=== PATIENT | female | born 1930 | race Caucasian/White ===

== ENCOUNTER 2018-06-30 13:04 | Emergency (ER) | payer MEDICARE ==
--- OUTSIDE RECORDS SUMMARY | 2018-06-30 13:39 | XMS REPORT | Continuity of Care Document ---
:1930 External Reference #:[id number] Author Name Beatriz Ward Care Team Providers Name Role Phone Yordan Johnson MD Primary Care Physician Unavailable Payers Type Date Identification Numbers Payment Provider Subscriber Policy Number: [id number] Medicare Meagan Chakraborty PayID: [id number] [address] [place] [address] Policy Number: [id number] [employer] Meagan Chakraborty PayID: [id number] [address] [place] [address] Expires: 2018 Policy Number: [id number] [employer] Meagan Chakraborty Group Number: [id number] [address] PayID: [id number] [place] [address] Policy Number: [id number] [facility] Meagan Chakraborty PayID: [id number] [address] [place] [address] PayID: [id number] [facility] Meagan Chakraborty [address] [place] [address] Advance Directives Description No Information Available Problems Description No Information Family History Date Family Member(s) Problem(s) Comments General Heart Disease General Cancer Mother due to CAD () Mother Stroke Social History Type Date Description Comments Sex Unknown Lives With Spouse Tobacco Use Start: Unknown End: Patient is a former quit 69 years ago Unknown smoker Smoking Status Reviewed: 06/29/18 Patient is a former quit 69 years ago smoker Exercise Exercises regularly Type/Frequency Allergies, Adverse Reactions, Alerts Date Description Reaction Status Severity Comments 08/12/2015 Tetracycline Active 10/04/2017 Bactrim Active rash Medications Medication Date Status Form Strength Qnty SIG Indications Ordering Provider No Active 06/29/ Active Unknown Medications 2018 Levaquin 10/04/ Hx Tablets 250mg 3tabs 1 tab po qd N39.0 Mary Ann 2018 - x 3 days Jesi, 05/23/ N.P. 2018 Anucort-HC 10/04/ Hx Suppository 25mg 12uni 1 K64.9 Mary Ann 2017 - ts suppository Jesi, 06/28/ every night N.P. 2019 as needed Rectiv 10/04/ Hx Ointment 0.4% 30gm apply K64.9 Mary Ann 2018 - sparingly Jesi, 05/23/ bid x 2 N.P. 2018 weeks Miralax 10/04/ Hx Packet 3350NF 24uni 1 capful qd K64.9 Mary Ann 2018 - ts Jesi, 06/28/ N.P. 2019 Biofreeze 04/22/ Hx Gel 4% 237ml 1 M54.31 Bridgett2016 - application [employer], 05/23/ topically [employer] 2017 four times a day as needed for muscle pain (may autosub 5% if 4% not available) Bactrim DS 01/29/ Hx Tablets 800-160mg 6tabs twice daily N39.0 Bridgett 2015 - for 3 days [place], 10/04/ [employer] 2017 Bactrim DS 01/19/ Hx Tablets 800-160mg 6tabs twice daily N39.0 Mary Ann 2015 - for 3 days [facility], 01/21/ N.P. 2016 Aspirin / Hx Tablets 325mg prn for pain Unknown - 2018 Probiotic / Hx Capsules 1 cap po qd Unknown - 2018 Immunizations Description No Information Available Vital Signs Date Vital Result Comment 06/29/2018 10:57am Height 62 inches 5'2" Weight 129.00 lb Heart Rate 65 /min BP Systolic Sitting 230 mmHg BP Diastolic Sitting 88 mmHg Pain Level 0 BMI (Body Mass Index) 23.6 kg/m2 05/25/2018 10:11am Weight 128.00 lb Heart Rate 58 /min BP Systolic Sitting 108 mmHg BP Diastolic Sitting 48 mmHg Respiratory Rate 20 /min Body Temperature 99.8 F O2 % BldC Oximetry 95 % 05/23/2018 11:45am Weight 127.12 lb Heart Rate 60 /min BP Systolic Sitting 148 mmHg BP Diastolic Sitting 76 mmHg Respiratory Rate 22 /min Body Temperature 99.9 F O2 % BldC Oximetry 99 % 10/04/2017 11:07am Weight 132.38 lb Heart Rate 81 /min BP Systolic Sitting 156 mmHg BP Diastolic Sitting 80 mmHg Respiratory Rate 16 /min Body Temperature 98.8 F O2 % BldC Oximetry 97 % 08/03/2017 11:43am Weight 132.00 lb Heart Rate 52 /min BP Systolic Sitting 170 mmHg BP Diastolic Sitting 64 mmHg Respiratory Rate 20 /min Body Temperature 99.4 F O2 % BldC Oximetry 95 % 04/22/2017 12:14pm Heart Rate 57 /min BP Systolic Sitting 156 mmHg BP Diastolic Sitting 64 mmHg Respiratory Rate 20 /min Body Temperature 99.2 F O2 % BldC Oximetry 98 % 02/15/2017 10:32am Heart Rate 62 /min BP Systolic 110 mmHg BP Diastolic 60 mmHg Respiratory Rate 20 /min Body Temperature 98.9 F O2 % BldC Oximetry 97 % 01/28/2016 11:37am Weight 123.50 lb Heart Rate 64 /min BP Systolic Sitting 120 mmHg BP Diastolic Sitting 70 mmHg Respiratory Rate 20 /min 01/20/2016 10:27am Weight 125.00 lb Heart Rate 63 /min BP Systolic Sitting 140 mmHg BP Diastolic Sitting 70 mmHg Respiratory Rate 18 /min Body Temperature 98.5 F O2 % BldC Oximetry 97 % 08/15/2015 1:17pm Heart Rate 53 /min BP Systolic Sitting 190 mmHg 10 min later 160/60 BP Diastolic Sitting 50 mmHg 10 min later 160/60 Respiratory Rate 16 /min Body Temperature 98.7 F O2 % BldC Oximetry 98 % 08/12/2015 10:55am Height 62 inches 5'2" Weight 125.38 lb Heart Rate 50 /min BP Systolic Sitting 210 mmHg 5 min later 160/60 BP Diastolic Sitting 64 mmHg 5 min later 160/60 Respiratory Rate 16 /min BMI (Body Mass Index) 22.9 kg/m2 Results Test Date Facility Test Result H/L Range Note Laboratory test 05/23/2018 [facility] Culture Throat SEE RESULT 1, [address] [place] [address] [phone] Urinalysis 10/03/2017 [facility] Urine Color Yellow Profile [address] [place] [address] [phone] Urine Appearance Cloudy Urine Specific [place] 1.006 Low 1.010-1.030 Urine pH 6.0 N 5-9 Urine Urobilinogen Negative Negative Urine Ketones Negative Negative Urine Protein Negative Negative Urine Leukocytes 3+ Abnormal Negative Urine Blood 1+ Abnormal Negative Urine Nitrite Negative Negative Urine Bilirubin Negative Negative Urine Glucose Negative Negative Urine White Blood Cell 3+(>20/hpf) Abnormal Absent Urine Red Blood Cell 1+(3-5/hpf) Abnormal Absent Urine Bacteria 1+ Abnormal Absent Urine Renal Epithelial Cells Present Abnormal Absent Urine Culture And 10/03/2017 [facility] Urine Culture SEE RESULT [address] [place] [address] [phone] Urinalysis Profile 01/28/2016 [facility] Urine Color Yellow N [address] [place] [address] [phone] Urine Appearance Clear N Urine Specific [place] 1.005 Low 1.010-1.030 Urine pH 6.0 N 5-9 Urine Urobilinogen Negative N Negative Urine Ketones Negative N Negative Urine Protein Negative N Negative Urine Leukocytes Negative N Negative Urine Blood Negative N Negative Urine Nitrite Negative N Negative Urine Bilirubin Negative N Negative Urine Glucose Negative N Negative Urine Culture And 01/28/2016 [facility] Urine Culture SEE RESULT [address] [place] [address] [phone] Urinalysis Profile 01/20/2016 [facility] Urine Color Yellow N [address] [place] [address] [phone] Urine Appearance Cloudy N Urine Specific [place] 1.009 Low 1.010-1.030 Urine pH 6.0 N 5-9 Urine Urobilinogen Negative N Negative Urine Ketones Negative N Negative Urine Protein Negative N Negative Urine Leukocytes 3+ Abnormal Negative Urine Blood 1+ Abnormal Negative Urine Nitrite Negative N Negative Urine Bilirubin Negative N Negative Urine Glucose Negative N Negative Urine White Blood Cell 3+(>20/hpf) Abnormal Absent Urine Red Blood Cell Trace(0-2/hpf) N Absent Urine Bacteria Absent N Absent Urine Squamous Epithelial Cell Present Abnormal Absent Urine Culture And 01/20/2016 [facility] Urine Culture SEE RESULT [address] [place] [address] [phone] 1 [id number] 2 SEE RESULT BELOW Name: MEAGAN CHAKRABORTY I : [address]: Mary Ann Dennison NP Acct: [id number] Unit: [id number] AGE: 87 Location: [facility] Re05/23/18 SEX: F Status: REG REF SPEC: [id number] KAYLA: 05/23/18-[address]: Mary Ann Dennison NP REQ: [id number] RECD: 05/23/18 STATUS: COMP _ SOURCE: THROAT SPDESC: ORDERED: Throat Culture COMMENTS: [id number] Procedure Result Reported Site Throat Culture Final 05/25/18- 0901 ML Organism 1 NORMAL FELICITY Quantity 3+ Throat cultures are clinically indicated to detect the presence of group A strep, arcanobacterium and yeast. In certain cases, predominating organisms will be reported. * ML - Main Lab . END OF REPORT DEPARTMENT OF PATHOLOGY, [address] [place] [address] Julius Emmanuel M.D. Director [facility] # [id number] 3 SEE RESULT BELOW Name: MEAGAN CHAKRABORTY Lula : [address]: Mary Ann Dennison NP Acct: [id number] Unit: [id number] AGE: 86 Location: [facility] Re10/03/17 SEX: F Status: REG REF SPEC: [id number] KAYLA: 10/03/17-[address]: Mary Ann Dennison NP REQ: [id number] RECD: 10/03/17-9672 EXPLICIT FAX#: FAX RESULTS [id number] STATUS: RES OTHR DR: Scarlet Johnson MD _ SOURCE: URINE SPDESC: ORDERED: Urine Culture QUERIES: Urine Source: Random Procedure Result Reported Site Urine Culture Preliminary 10/04/17- 1008 ML Organism 1 KLEBSIELLA OXYTOCA [place] Count >100,000 (Many) CFU/ML * ML - Main Lab . END OF REPORT DEPARTMENT OF PATHOLOGY, [address] [place] [address] Julius Emmanuel M.D. Director [facility] # [id number] 4 [id number] 5 SEE RESULT BELOW Name: MEAGAN CHAKRABORTY I : [address]: Mary Ann Dennison NP Acct: [id number] Unit: [id number] AGE: 85 Location: [facility] Re01/28/16 SEX: F Status: REG REF SPEC: [id number] KAYLA: 01/28/16-[address]: Mary Ann Dennsion NP REQ: [id number] RECD: 01/28/16 STATUS: EWA CARUSO DR: Scarlet _ SOURCE: URINE SPDESC: ORDERED: Urine Culture COMMENTS: [id number] Procedure Result Reported Site Urine Culture Final 01/29/16- 1704 ML No Growth (<1,000 CFU/mL) * ML - MAIN LAB ([facility]) . END OF REPORT * ML=Testing performed at Main Lab DEPARTMENT OF PATHOLOGY, [address] [place] [address] Julius Emmanuel M.D. Director [facility] # [id number] 6 [facility] [id number] 7 SEE RESULT BELOW Name: [place] I : [address]: Mary Ann Dennison NP Acct: [id number] Unit: [id number] AGE: 85 Location: [facility] Re01/20/16 SEX: F Status: REG REF SPEC: [id number] KAYLA: 01/20/16-[address] [facility] [address]: Mary Ann Dennison [employer] REQ: [id number] RECD: 01/20/16-1220 STATUS: EWA CARUSO DR: Scarlet _ SOURCE: URINE SPDESC: ORDERED: Urine Culture COMMENTS: [facility] [id number] Procedure Result Reported Site Urine Culture Final 01/21/16- 1417 ML Organism 1 STREP GROUP B [place] Count >100,000 (Many) CFU/ML Susceptibility testing of penicillins and other B-lactams approved by FDA for treatment of Streptococcus pyogenes (Group A Strep) and Streptococcus agalactiae (Group B Strep) is not necessary for clinical purposes and need not be done routinely, since as with vancomycin, resistant strains have not been recognized. (CLSI H865-R12;p.66) Positive isolates will be saved for one week. Please call the Microbiology Laboratory if further susceptibility testing is needed. * ML - MAIN LAB ([facility]) . END OF REPORT * ML=Testing performed at Main Lab DEPARTMENT OF PATHOLOGY, [address] [place] [address] Julius Emmanuel M.D. Director [facility] # [id number] Procedures Description No Information Available Encounters Type Date Location Provider Dx Diagnosis Office Visit 05/25/2018 Scarlet Dennison J02.9 Acute pharyngitis, 10:09a Home N.P. unspecified Office Visit 05/23/2018 Scarlet Dennison J02.9 Acute pharyngitis, 12:09p Home N.P. unspecified Office Visit 10/04/2017 Scarlet Dennison N39.0 Urinary tract 10:36a Home N.P. infection, site not specified K64.9 Unspecified hemorrhoids K64.4 Residual hemorrhoidal skin tags Office Visit 08/03/2017 7:48a [facility] Majo Alcaraz, N39.0 Urinary tract Home [employer] infection, site not specified R03.0 Elevated blood-pressure reading, w/o diagnosis of htn Office Visit 04/22/2017 12:22p [facility] Majo Alcaraz, M54.31 Sciatica, right Home [employer] side R03.0 Elevated blood-pressure reading, w/o diagnosis of htn Office Visit 02/15/2017 Scarlet Liao S66.811A Strain of 10:38a [employer] [place], [employer] musc/fasc/tend at wrs/hnd lv, right hand, init Office Visit 01/28/2016 Scarlet Dennison N39.0 Urinary tract 11:52a [facility]-Way N.P. infection, site not specified Office Visit 01/20/2016 Scarlet Dennison N39.0 Urinary tract 10:29a [facility]-Way N.P. infection, site not specified Office Visit 08/15/2015 Scarlet Dennison, M25.531 Pain in right wrist 1:27p [facility] N.P. I10 Essential (primary) hypertension Office Visit 08/12/2015 10:30a [facility] Mary Ann Dennison, M25.531 Pain in right Home N.P. wrist R03.0 Elevated blood-pressure reading, w/o diagnosis of htn Plan of Treatment 06/29/2018 - Haim Horan M.D.T84.84xD Pain due to internal orthopedic prosthetic devices, implantsFollow up:As needed
--- OUTSIDE RECORDS SUMMARY | 2018-06-30 13:39 | XMS REPORT | Continuity of Care Document ---
:1930 External Reference #:[id number] Author Name Lavern Bonilla NP Address [address] [facility] [place] [address] Care Team Providers Name Role Phone Soni Johnson MD Care Team Information [facility] Unavailable Soni Johnson MD Primary Care Physician Unavailable Payers Type Date Identification Numbers Payment Provider Subscriber Effective: Policy Number: [id number] Medicare [place] Meagan Chakraborty 1995 PayID: [id number] [address] [place] [address] Effective: 2007 Policy Number: [id number] [employer] Laura Elie Chakraborty Expires: 2016 Group Number: [id number] [address] PayID: [id number] [place] [address] Effective: 2015 Policy Number: [facility] Meagan Chakraborty [id number] Options PayID: [id number] [address] [place] [address] Advance Directives Description No Information Available Problems Date Description Provider Status Onset: 11/03/2011 Eruption Soni Johnson M.D. Active Onset: 05/11/2011 Hyperlipidemia Soni Johnson M.D. Active Family History Date Family Member(s) Problem(s) Comments Mother Long Lived Social History Type Date Description Comments Sex Unknown Tobacco Use Start: Unknown Nonsmoker Allergies, Adverse Reactions, Alerts Date Description Reaction Status Severity Comments 05/11/2011 Aueromycin Active 02/07/2018 Bactrim hives Active Medications Medication Date Status Form Strength Qnty SIG Indications Ordering Provider Stool Softener 00 Active Capsules 100mg take one Unknown /0000 capsule by mouth twice a day Sertraline HCL Active Tablets 25mg 30tab 1 by mouth Soni Delgadillo / s every day Cole Johnson Zoloft 11/24 Hx Tablets 25mg 30tab take 1 Soni J. s tablet by Elizabeth, - mouth one M.DDieter 11/22 time daily Elimite 12/17 Hx Cream 5% 30gm apply to 133.0 Soni J. skin , Elizabeth, - leave on M.DDieter 01/17 for 12-14h /2016 and shower, may repeat in 1 week if needed Prednisone 11/14 Hx Tablets 20mg 7tabs 2 Pills 782.1 Soni J. Aday For , - 1WK 1Pill MJosafat 11/24 Aday 1 WK Elimite 10/30 Hx Cream 5% 60gm apply to 133.0 Zo skin from Boris, - neck to [employer] 11/18 toes, leave on for 12-14h and shower, may repeat in 1 week if needed Zyrtec Allergy 10/30 Hx Tablets 10mg 30tab 1 by mouth 782.1 Zo s every day Boris, - [employer] 11/24 Ciprofloxacin HCL 08/29 Hx Tablets 250mg 14tab 1 by mouth 681.00 Zo s twice a Boris, - day x 7d [facility] 10/30 Cyclobenzaprine 08/15 Hx Tablets 5mg 45tab 1 po q 723.1 Zo HCL s 6-8h Boris, - during the [employer] 10/30 day, 2 by mouth at bedtime as needed Ibuprofen 08/15 Hx Tablets 400mg 60tab take 1 723.1 Zo s tablet 3 Boris, - times a [employer] 10/30 day for pain/ muscle strain. Ciprofloxacin HCL 05/06 Hx Tablets 250mg 6tabs 1 tab 599.0 twice a Keo, - day x 3 M.D. Probiotic 01/22 Hx Capsules 2-3tabs po Soni Delgadillo /2013 each day Jo Johnson M.D. 02/06 Clotrimazole/Beta 09/06 Hx Cream 1-0.05% 30gm apply Zo methasone springly Boris, Dipropionate - to [employer] 01/22 affected area bid Fexofenadine HCL 02/10 Hx Tablets 180mg 14tab 1 po qd E905.3 Divya Jo Nicholas 09/06 Methylprednisolon 02/10 Hx Tablets 4mg 1pk as E905.3 Divya e Dose Jo Raza 02/17 Cipro 01/16 Hx Tablets 250mg 10tab 1 po bid Jo Fan M.D. 02/10 Cipro 12/09 Hx Tablets 250mg 10tab 1 po bid Jo Fan M.D. 01/16 Lotrisone 11/02 Hx Cream 1-0.05% 30uni use on ts skin bid Jo Johnson M.D. 01/16 Hearing Eval 08/25 Hx pt needs Soni Delgadillo to have a Jo Johnson M.D. 05/11 evaluation for hearing loss Calcium 600+D 07/22 Hx Tablets 600-400mg 2 po qd [facility] 01/16 Ibuprofen 07/22 Hx 200mg 1 po qd [facility] 01/16 Ciprofloxacin HCL 07/22 Hx Tablets 250mg 3Days take 1 Soni Delgadillo tablet by Jo Johnson M.D. 05/11 twice a /2010 day Boniva 11/30 Hx Tablets 150mg 3tabs 1 Q Month Soni Delgadillo Jo Johnson M.D. 07/22 Airline Excuse 07/07 Hx Meagan Soni Delgadillo Was Ill Lucio Johnson 07/22 [facility] Fly From May 25 Until Jun 13 Calcium 07/07 Hx Tablets 600mg 0tabs 2 po qd [facility] 07/22 [facility] Aspirin Ec 00/ Hx Tablets 81mg 1 po qd Unknown /0000 DR - 01/22 Aspirin Ec 00 Hx Tablets 325mg 1 by mouth Unknown /0000 every day - 02/07 Immunizations CPT Code Status Date Vaccine Lot # [id number] Given 03/23/2017 High-Dose, Influenza Virus Vacccine-fluzone 65 and older 45616 Given 11/25/2015 Pneumococcal Conjugate Vacc-13 [id number] Given 03/30/2014 High-Dose, Influenza Virus Vacccine-fluzone 65 [id number] and older 74707 Given 05/09/2013 DO Not Use Split Influenza Virus Vaccine 21518 Given 03/02/2012 DO Not Use Split Influenza Virus Vaccine 75707 Given 02/18/2011 DO Not Use Split Influenza Virus Vaccine 90517 Given 03/25/2010 DO Not Use Split Influenza Virus Vaccine [id number] 38374 Given 05/19/2009 DO Not Use Split Influenza Virus Vaccine [id number] 13802 Given 04/26/2008 DO Not Use Split Influenza Virus Vaccine [id number] 83754 Given 07/07/2007 Tetanus And Diptheria Adult Preservative Free [id number] >7Yrs 46164 Given 03/31/2006 DO Not Use Split Influenza Virus Vaccine 52751 Given 04/15/2000 Pneumococcal Immunization Vital Signs Date Vital Result Comment 06/30/2018 11:17am BP Systolic 150 mmHg BP Diastolic 70 mmHg Heart Rate 50 /min Body Temperature 98.1 F Respiratory Rate 16 /min Height 61 inches 5'1" Weight 129.00 lb BMI (Body Mass Index) 24.4 kg/m2 02/07/2018 1:01pm BP Systolic 134 mmHg BP Diastolic 72 mmHg Heart Rate 78 /min Body Temperature 98.1 F Height 61 inches 5'1" Weight 129.00 lb BMI (Body Mass Index) 24.4 kg/m2 01/18/2017 10:32am BP Systolic 156 mmHg BP Diastolic 80 mmHg Heart Rate 76 /min Body Temperature 97.7 F Height 61 inches 5'1" Weight 126.25 lb BMI (Body Mass Index) 23.9 kg/m2 11/22/2016 10:12am BP Systolic 128 mmHg BP Diastolic 72 mmHg Heart Rate 64 /min Body Temperature 98.1 F Respiratory Rate 18 /min Height 61 inches 5'1" Weight 128.00 lb BMI (Body Mass Index) 24.2 kg/m2 11/25/2015 10:55am BP Systolic 148 mmHg BP Diastolic 90 mmHg Heart Rate 64 /min Body Temperature 98.2 F Respiratory Rate 18 /min Height 61 inches 5'1" Weight 123.00 lb BMI (Body Mass Index) 23.2 kg/m2 12/17/2014 2:04pm Height 61 inches 5'1" 11/14/2014 10:33am Height 61 inches 5'1" 10/30/2014 4:12pm BP Systolic 142 mmHg BP Diastolic 80 mmHg Heart Rate 60 /min Body Temperature 98.1 F Respiratory Rate 18 /min Height 61 inches 5'1" Weight 113.00 lb BMI (Body Mass Index) 21.3 kg/m2 08/29/2014 3:21pm BP Systolic 140 mmHg BP Diastolic 80 mmHg Heart Rate 60 /min Body Temperature 99.7 F Respiratory Rate 18 /min Height 61 inches 5'1" Weight 115.00 lb BMI (Body Mass Index) 21.7 kg/m2 08/15/2014 1:49pm BP Systolic 142 mmHg BP Diastolic 80 mmHg Heart Rate 54 /min Body Temperature 98.9 F Weight 115.25 lb 05/06/2014 11:48am BP Systolic 110 mmHg BP Diastolic 60 mmHg Heart Rate 60 /min Body Temperature 98.8 F Respiratory Rate 14 /min Weight 114.00 lb 01/22/2014 3:31pm BP Systolic 124 mmHg BP Diastolic 70 mmHg Heart Rate 56 /min Body Temperature 98.2 F Respiratory Rate 16 /min Height 61 inches 5'1" Weight 116.00 lb BMI (Body Mass Index) 21.9 kg/m2 09/06/2013 12:56pm BP Systolic 178 mmHg BP Diastolic 72 mmHg Heart Rate 60 /min Body Temperature 98.8 F Respiratory Rate 16 /min Height 62 inches 5'2" Weight 123.12 lb BMI (Body Mass Index) 22.5 kg/m2 02/10/2013 11:20am BP Systolic 130 mmHg BP Diastolic 90 mmHg Heart Rate 64 /min Body Temperature 99.9 F Respiratory Rate 16 /min Height 62 inches 5'2" Weight 125.00 lb BMI (Body Mass Index) 22.9 kg/m2 01/16/2013 10:33am BP Systolic 140 mmHg BP Diastolic 80 mmHg Heart Rate 64 /min Body Temperature 98.4 F Respiratory Rate 16 /min Height 62 inches 5'2" Weight 123.00 lb BMI (Body Mass Index) 22.5 kg/m2 11/03/2011 7:28pm BP Systolic 146 mmHg BP Diastolic 80 mmHg Heart Rate 68 /min Body Temperature 99.3 F Height 62 inches 5'2" Weight 125.00 lb BMI (Body Mass Index) 22.9 kg/m2 05/11/2011 10:58am BP Systolic 108 mmHg BP Diastolic 70 mmHg Heart Rate 60 /min Height 62 inches 5'2" Weight 123.00 lb BMI (Body Mass Index) 22.5 kg/m2 07/22/2009 10:23am BP Systolic 140 mmHg BP Diastolic 72 mmHg Heart Rate 72 /min Weight 139.00 lb 07/07/2007 10:30am BP Systolic 128 mmHg BP Diastolic 82 mmHg Heart Rate 76 /min Height 62.5 inches 5'2.50" Weight 133.00 lb BMI (Body Mass Index) 23.9 kg/m2 01/02/2001 9:18am BP Systolic 128 mmHg BP Diastolic 80 mmHg Heart Rate 64 /min Height 62.5 inches 5'2.50" Weight 131.50 lb BMI (Body Mass Index) 24.1 kg/m2 04/15/2000 3:33pm BP Systolic 130 mmHg BP Diastolic 84 mmHg Heart Rate 76 /min Body Temperature 99.1 F Height 62.5 inches 5'2.50" Weight 134.50 lb BMI (Body Mass Index) 24.7 kg/m2 01/29/2000 9:27am BP Systolic 144 mmHg BP Diastolic 76 mmHg Heart Rate 60 /min Weight 136.00 lb Results Test Date Facility Test Result H/L Range Note Laboratory test 02/07/2018 [facility] ([facility]) TSH 2.86 mIU/L 0.50- 6.00 finding Lipid Profile 02/07/2018 [facility] (a) Cholesterol 194 mg/dL 120- 200 Triglycerides 57 mg/dL 30-200 HDL Cholesterol 82 mg/dL 30-85 LDL (Calculated) 101 CALC 0-129 VLDL Cholesterol 11 mg/dL 0-50 HDL Risk Factor 2.4 CALC 0.0-4.4 Comprehensive Metabolic 02/07/2018 [facility] (a) Sodium 142 mEq/L 134-149 Prof Potassium 4.3 mEq/L 3.6-5.5 Chloride 108 mEq/L 94-112 Carbon Dioxide 25 mEq/L 21-32 Glucose 97 mg/dL 70-105 BUN 18 mg/dL 6-26 Creatinine 0.9 mg/dL 0.6-1.4 BUN/Creat Ratio 20.0 CALC 8.0-36.0 Calcium 9.1 mg/dL 8.6-10.2 Total Protein 7.2 g/dL 6.4-8.3 Albumin 4.1 g/dL 3.8-5.5 Globulin 3.1 g/dL 2.0-4.8 A/G Ratio 1.3 CALC 0.6-2.3 Alk. Phosphatase 54 U/L 30-110 Alt (SGPT) 13 U/L 7-35 Ast (Sgot) 20 U/L 5-34 Total Bilirubin 0.8 mg/dL 0.2-1.3 GFR Non- >60 ml/min/1.73m^ >=60 GFR >60 ml/min/1.73m^ >=60 Urinalysis Profile 10/03/2017 [facility] [place] Color Yellow Urine Appearance Cloudy Urine Specific [place] 1.006 Low 1.010-1.030 Urine pH 6.0 N [...] Present Abnormal Absent Urine Culture And 10/03/2017 [facility] [place]rine Culture SEE RESULT 1 Sensitivities BELOW Complete Blood Count 01/18/2017 [facility] ([facility]) WBC 5.0 x10^3/UL 3.6-9.6 RBC 3.80 x10^6/UL Low 3.90-5.70 HGB 12.5 g/dL 12.1-17.2 HCT 37 % 36-50 MCV 98.0 fL High 82.2-97.4 MCH 32.9 pg 27.6-33.3 MCHC 33.5 g/dL 33.0-35.5 RDW 17.8 % High 11.6-13.7 PLT 418 x10^3/UL High 150-400 2 MPV 7.4 fL 7.4-10.4 Gran # 3.2 x10^3/UL 1.5-7.2 Lymph# 1.4 x10^3/UL 0.7-4.9 Salem# 0.4 x10^3/UL 0.1-0.9 Gran % 62.8 % 42.2-75.2 Lymph % 28.8 % 20.5-51.1 Salem% 8.4 % 1.7-9.3 Lipid Profile 01/18/2017 [facility] Flora ([facility]) Cholesterol 176 mg/dL 120- 200 Triglycerides 68 mg/dL 30-200 HDL Cholesterol 69 mg/dL 30-85 LDL (Calculated) 93 CALC 0-129 VLDL Cholesterol 14 mg/dL 0-50 HDL Risk Factor 2.6 CALC 0.0-4.4 Comprehensive Metabolic 01/18/2017 Wilson Flora ([facility]) Sodium 138 mEq/L 134-149 Prof Potassium 4.4 mEq/L 3.6-5.5 Chloride 102 mEq/L 94-112 Carbon Dioxide 27 mEq/L 21-32 Glucose 98 mg/dL 70-105 BUN 12 mg/dL 6-26 Creatinine 0.8 mg/dL 0.6-1.4 BUN/Creat Ratio 15.0 CALC 8.0-36.0 Calcium 9.9 mg/dL 8.6-10.2 Total Protein 6.7 g/dL 6.4-8.3 Albumin 4.1 g/dL 3.8-5.5 Globulin 2.6 g/dL 2.0-4.8 A/G Ratio 1.6 CALC 0.6-2.3 Alk. Phosphatase 50 U/L 30-110 Alt (SGPT) 12 U/L 7-35 Ast (Sgot) 18 U/L 5-34 Total Bilirubin 0.8 mg/dL 0.2-1.3 GFR Non- >60 ml/min/1.73m^ >=60 GFR >60 ml/min/1.73m^ >=60 Lipid Profile 11/25/2015 Wilson Flora ([facility]) Cholesterol 182 mg/dL 120- 200 Triglycerides 61 mg/dL 30-200 HDL Cholesterol 71 mg/dL 30-85 LDL (Calculated) 99 CALC 0-129 VLDL Cholesterol 12 mg/dL 0-50 HDL Risk Factor 2.6 CALC 0.0-4.4 Complete Blood Count 11/25/2015 Wilson Flora ([facility]) WBC 5.0 x10^3/UL 3.6-9.6 RBC 3.67 x10^6/UL Low 3.90-5.70 3 HGB 12.4 g/dL 12.1-17.2 HCT 37 % 36-50 MCV 101.0 fL High 82.2-97.4 4 MCH 33.7 pg High 27.6-33.3 5 MCHC 33.3 g/dL 33.0-35.5 RDW 16.3 % High 11.6-13.7 6 PLT 351 x10^3/UL 150-400 MPV 7.0 fL Low 7.4-10.4 7 Gran # 3.3 x10^3/UL 1.5-7.2 Lymph# 1.3 x10^3/UL 0.7-4.9 Salem# 0.4 x10^3/UL 0.1-0.9 Gran % 65.1 % 42.2-75.2 Lymph % 26.7 % 20.5-51.1 Salem% 8.2 % 1.7-9.3 Laboratory test finding 11/25/2015 Steve L[facility]ay ([facility]) TSH 1.80 mIU/L 0.50-6.00 Comprehensive Metabolic 11/25/2015 Steve Lashay ([facility]) Sodium 139 mEq/L 134-149 Prof Potassium 4.3 mEq/L 3.6-5.5 Chloride 98 mEq/L 94-112 Carbon Dioxide 28 mEq/L 21-32 Glucose 97 mg/dL 70-105 BUN 15 mg/dL 6-26 Creatinine 0.8 mg/dL 0.6-1.4 BUN/Creat Ratio 18.8 CALC 8.0-36.0 Calcium 9.0 mg/dL 8.6-10.2 Total Protein 7.2 g/dL 6.4-8.3 Albumin 3.9 g/dL 3.8-5.5 Globulin 3.3 g/dL 2.0-4.8 A/G Ratio 1.2 CALC 0.6-2.3 Alk. Phosphatase 53 U/L 30-110 Alt (SGPT) 11 U/L 7-35 Ast (Sgot) 15 U/L 5-34 Total Bilirubin 0.7 mg/dL 0.2-1.3 GFR Non- >60 ml/min/1.73m^ >=60 GFR >60 ml/min/1.73m^ >=60 Ua - Micro (Fma) 05/06/2014 [facility] Appearance yellow (607)- - Color clear Glucose, Urine (Fma/CMC/CTX) neg Bilirubin neg Ketones neg SP Grav <=1.005 PH small Protein 6.0 Urobil neg Nitrite 0.2 Leukocytes ([facility]ma/CMC/[facility]) pos Hyaline large /Lpf Granular - /Lpf WBC (Fma,[facility]) - RBC >100 Mucus (Fma/CBC/[facility]) 5-10 /Lpf Epith sm amt /Lpf Bacteria few /Hpf Amorphous (Fma/CMC/[facility]) 3+ /Lpf Crystals, Fluid (Fma/CMC/CTX) - Z#Comments - Laboratory test 05/06/2014 [facility] Urine Culture Escherichia coli 8 finding [address] [place] [address] [phone] CBC Electronic 01/22/2014 [facility] WBC 4.5 3.6-9 (a) (607)- - .6 RBC 3.49 Low 3.90-5.70 Hemoglobin (Fma/CMC/CTX) 11.9 g/dL Low 12.1 - 17.2 Hematocrit (Fma/CMC/CTX) 34.9 % Low 36.1 - 50.3 Platelets 310 10^3/ul 150-400 Lymph% 37.5 % 17.0-48.0 Mixed% 8.3 Neutrophils % 54.2 Mean Corpuscular Vol 100 High 82.2-97.4 Mean Corpuscular Hemoglobin 34.1 High 27.6-33.3 Mean Corpuscular Hemo Concen 34.1 32.0-36.0 RDW 13.7 11.6-13.7 Mean Platelet Volume 6.9 5.5-11.0 Comprehensive Metabolic 01/22/2014 [facility]ay (a) Sodium 137 mEq/L 134-149 Prof Potassium 3.4 mEq/L Low 3.6-5.5 9 Chloride 102 mEq/L 94-112 Carbon Dioxide 26 mEq/L 21-32 Glucose 85 mg/dL 70-105 BUN 9 mg/dL 6-26 Creatinine 0.7 mg/dL 0.6-1.4 BUN/Creat Ratio 12.9 CALC 8.0-36.0 Calcium 8.9 mg/dL 8.6-10.2 Total Protein 6.7 g/dL 6.3-8.1 Albumin 4.2 g/dL 3.8-5.5 Globulin 2.5 g/dL 2.0-4.8 A/G Ratio 1.7 CALC 0.6-2.3 Alk. Phosphatase 64 U/L 30-110 Alt (SGPT) 16 U/L 7-35 Ast (Sgot) 15 U/L 5-34 Total Bilirubin 0.8 mg/dL 0.2-1.3 Laboratory test 01/22/2014 [facility]ay (a) Free T4 0.99 ng/dL 0.75- 1.54 finding TSH 2.70 mIU/L 0.50-6.00 Serum Iron 135 g/dL 60-150 Vitamin B-12 312 pg/mL 230-1050 Folate Level 11.33 ng/mL 3.00-16.00 Ua - Micro (Fma) 09/06/2013 [facility] Appearance CLEAR (607)- - Color PINK Glucose NEGATIVE Bilirubin NEGATIVE Ketones NEGATIVE SP Grav <=1.005 Blood NEGATIVE PH 6.0 Protein NEGATIVE Urobil 0.2 Nitrite NEGATIVE Leukocytes (Fma/CMC/[facility]) NEGATIVE Hyaline - /Lpf Granular - /Lpf WBC (Fma,[facility]) 0 RBC 0 Mucus 0 /Lpf Epith 0 /Lpf Bacteria 0 /Hpf Amorphous 0 /Lpf Crystals, Fluid (Fma/CMC/CTX) 0 Z#Comments 0 Comprehensive Metabolic 01/16/2013 [facility] (a) Albumin 4.1 g/dL 3.8-5.5 Prof Alk. Phos. 71 U/L 30-110 Alt (SGPT) 11 U/L 7-35 Ast (Sgot) 19 U/L 5-34 BUN 13 mg/dL 6-26 Calcium 9.2 mg/dL 8.6-10.2 Chloride 99 mEq/L 94-112 Creatinine 1.0 mg/dL 0.6-1.4 Carbon Dioxide 27 mEq/L 21-32 Glucose 93 mg/dL 70-105 Sodium 139 mEq/L 134-149 Total Bilirubin 0.8 mg/dL 0.2-1.3 Total Protein 6.8 g/dL 6.3-8.1 Potassium 4.4 mEq/L 3.6-5.5 Globulin 2.7 g/dL 2.0-4.8 A/G Ratio 1.5 Calc 0.6-2.3 BUN/Creat Ratio 13.1 Calc 8.0-36.0 Ua - Micro ([facility]) 01/16/2013 [facility] Appearance cloudy (607)- - Color yellow Glucose neg Bilirubin neg Ketones neg SP Grav 1.015 Blood moderate # PH 6.5 Protein ssa+1 # Urobil 0.2 Nitrite positive # Leukocytes (Fma/CMC/[facility]) large # Hyaline - /Lpf Granular - /Lpf WBC (a,[facility]) >100 # RBC 15-20 # Mucus - /Lpf Epith occ /Lpf # Bacteria +4 /Hpf # Amorphous - /Lpf Crystals, Fluid (a/CMC/CTX) - Z#Comments - Laboratory test 01/16/2013 Wilson Lashay ([facility]) TSH 1.57 mIU/L 0.50- 6.00 finding Lipid Profile 01/16/2013 Wilson Lashay ([facility]) Cholesterol 167 mg/dL 120- 200 HDL 62 mg/dL 30-85 Triglycerides 78 mg/dL 30-200 HDL Risk Factor 2.7 CALC 0.0-4.4 LDL (Calculated) 89 CALC 0-129 VLDL (Calculated) 16 mg/dL 0-50 CBC Electronic ([facility]) 01/16/2013 [facility] WBC 6.4 3.6-9.6 (607)- - RBC 3.68 Low 3.90-5.70 Hemoglobin (Fma/CMC/CTX) 12.1 g/dL 12.1 - 17.2 Hematocrit (a/CMC/CTX) 35.8 % Low 36.1 - 50.3 Platelets 396 10^3/ul 150-400 Lymph% 24.7 20.5-51.1 Mixed% 8.6 Neutrophils % 66.7 Mean Corpuscular Vol 97 82.2-97.4 Mean Corpuscular Hemoglobin 33.0 27.6-33.3 Mean Corpuscular Hemo Concen 33.9 32.0-36.0 RDW 13.9 High 11.6-13.7 Mean Platelet Volume 7.2 6.5-11.0 Ua - Micro ([facility]) 12/10/2011 [facility] Appearance yellow (607)- - Color clear Glucose neg Bilirubin neg Ketones neg SP Grav 1.020 Blood trce-intact # PH 5.5 Protein neg Urobil 0.2 Nitrite pos # Leukocytes (Fma/CMC/[facility]) mod # Hyaline - /Lpf Granular - /Lpf WBC (a,[facility]) 20-30 # RBC 2-3 # Mucus - /Lpf Epith rare /Lpf Bacteria +2 /Hpf # Amorphous - /Lpf Crystals, Fluid (Fma/CMC/CTX) - Z#Comments - Comprehensive Metabolic 05/11/2011 Wilson Lashay ([facility]) Albumin 4.5 g/dL 3.8-5.5 Prof Alk. Phos. 69 U/L 30-110 Alt (SGPT) 11 U/L 7-35 Ast (Sgot) 16 U/L 5-34 BUN 10 mg/dL 6-26 Calcium 9.3 mg/dL 8.6-10.2 Chloride 105 mEq/L 94-112 Creatinine 1.0 mg/dL 0.6-1.4 Carbon Dioxide 27 mEq/L 21-32 Glucose 92 mg/dL 70-105 Sodium 138 mEq/L 134-149 Total Bilirubin 0.6 mg/dL 0.2-1.3 Total Protein 7.2 g/dL 6.3-8.1 Potassium 4.4 mEq/L 3.6-5.5 Globulin 2.8 g/dL 2.0-4.8 A/G Ratio 1.6 Calc 0.6-2.2 BUN/Creat Ratio 10.4 Calc 8.0-36.0 Lipid Profile 05/11/2011 Wilson Lashay ([facility]) Cholesterol 193 mg/dL 120- 200 HDL 74 mg/dL 30-85 Triglycerides 70 mg/dL 30-200 HDL Risk Factor 2.6 CALC 0.0-4.0 LDL (Calculated) 105 CALC 0-129 VLDL (Calculated) 14 mg/dL 0-50 CBC Electronic (a) 05/11/2011 [facility] WBC 4.7 3.6-9.6 (607)- - RBC 3.95 3.90-5.70 Hemoglobin (Fma/CMC/CTX) 12.9 g/dL 12.1 - 17.2 Hematocrit (Fma/CMC/CTX) 37.9 % 36.1 - 50.3 Platelets 372 10^3/ul 150-400 Lymph% 33.8 20.5-51.1 Mixed% 7.9 Neutrophils % 58.3 Mean Corpuscular Vol 96 82.2-97.4 Mean Corpuscular Hemoglobin 32.8 27.6-33.3 Mean Corpuscular Hemo Concen 34.1 32.0-36.0 RDW 13.4 11.6-13.7 Mean Platelet Volume 7.5 6.5-11.0 Laboratory test 05/11/2011 [facility] Thin Prep SEE NOTE 10 finding [address] W/HPV(Lsil/ZAHRA/Asc) [place] [address] [phone] CBC (Fma) 07/22/2009 [facility] Medicine WBC 4.6 3.6- (607)- - 9.6 RBC 4.16 3.90-5.70 Hemoglobin (Fma/CMC/CTX) 13.4 g/dL 12.1 - 17.2 Hematocrit (Fma/CMC/CTX) 41.2 % 36.1 - 50.3 Mean Corpuscular Vol 99.0 High 82.2-97.4 Mean Corpuscular Hemaglobin 32.2 27.6-33.3 Mean Corpuscular Hemo Concen 32.5 Low 33.0-36.0 Platelets 283 10^3/ul 150-400 Lymph% 25.8 20.5-51.1 Mixed% 10.8 Neutrophils % 63.4 RDW 14.6 High 11.6-13.7 Mean Platelet Volume 10.6 High 7.4-10.4 Laboratory test 07/22/2009 [facility] Thin Prep SEE 11 finding 28 [facility] W/HPV(Lsil/ZAHRA/Asc) [place] [address] [phone] Comprehensive 07/22/2009 [facility] Lashay (a) Albumin 4.4 3.8 Metabolic Prof g/dL -5. 5 Alk. Phos. 66 U/L 30-110 Alt (SGPT) 15 U/L 7-35 Ast (Sgot) 18 U/L 5-34 BUN 25 mg/dL 6-26 Calcium 9.5 mg/dL 8.6-10.2 Chloride 104 mEq/L 94-112 Creatinine 1.2 mg/dL 0.6-1.4 Carbon Dioxide 22 mEq/L 21-32 Glucose 95 mg/dL 70-105 Sodium 146 mEq/L 134-149 Total Bilirubin 0.5 mg/dL 0.2-1.3 Total Protein 7.8 g/dL 6.3-8.1 Potassium 4.3 mEq/L 3.6-5.5 Globulin 3.4 g/dL 2.0-4.8 A/G Ratio 1.3 Calc 0.6-2.2 BUN/Creat Ratio 21.3 Calc 8.0-36.0 Lipid Profile 07/22/2009 [facility] ([facility]) Cholesterol 189 mg/dL 120- 200 HDL 68 mg/dL 30-85 Triglycerides 100 mg/dL 30-200 HDL Risk Factor 2.8 CALC Low 4.2-7.0 LDL (Calculated) 101 CALC 0-129 VLDL (Calculated) 20 mg/dL 0-50 Laboratory test finding 07/22/2009 [facility] ([facility]) TSH 1.68 mIU/L 0.50-6.00 Complete Blood Count 07/07/2007 [facility] Met[facility] ([facility]) WBC 4.3 x10^3/u 3.6 -9.6 Gran# 2.8 x10^3/u 1.5-7.2 Gran% 66.2 % 42.2-75.2 HCT 40 % 36-50 HGB 13.5 g/dL 12.1-17.2 Lymph# 1.2 x10^3/u 0.7-4.9 Lymph% 28.1 % 20.5-51.1 MCH 33.4 pg High 27.6-33.3 MCV 98.8 fL High 82.2-97.4 MCHC 33.8 g/dL 33.0-35.5 Mo# 0.2 x10^3/u 0.1-0.9 Mo% 5.7 % 1.7-9.3 MPV 8.5 fL 7.4-10.4 PLT 319 x10^3/u 150-400 RBC 4.04 x10^6/u 3.90-5.70 RDW 13.7 % 11.6-13.7 Comprehensive Metabolic 07/07/2007 Steve Metz ([facility]) Albumin 4.2 g/dL 3.8-5.5 Prof Alk. Phos. 60 U/L 30-110 Alt (SGPT) 14 U/L 7-35 Ast (Sgot) 16 U/L 5-34 BUN 27 mg/dL High 6-26 12 Calcium 9.5 mg/dL 8.6-10.2 Chloride 100 mEq/L 94-112 Creatinine 1.1 mg/dL 0.6-1.4 Carbon Dioxide 28 mEq/L 21-32 Glucose 92 mg/dL 70-105 Sodium 137 mEq/L 134-149 Total Bilirubin 0.4 mg/dL 0.2-1.3 Total Protein 7.3 g/dL 6.3-8.1 Potassium 3.9 mEq/L 3.6-5.5 Globulin 3.1 g/dL 2.0-4.8 A/G Ratio 1.3 Calc 0.6-2.2 BUN/Creat Ratio 24.0 Calc 8.0-36.0 Laboratory test 07/07/2007 [facility] Lashay (a) TSH 1.60 mIU/L 0.50- 6.00 finding Laboratory test 07/07/2007 [facility] Sed Rate 16 MM finding (607)- - (Fma/CMC/[facility]) Ua - Non Micro 07/07/2007 [facility] Appearance CLEAR (a) (607)- - Color LT YELLOW Glucose, Urine (Fma/[facility]/CTX) NEG Bilirubin NEG Ketones NEG SP Grav 1.010 Blood NEG PH 5.0 Protein NEG Urobil 0.2 Nitrite NEG Leukocytes ([facility]) NEG Laboratory test 07/07/2007 [facility] Thin Prep SEE NOTE [address] W/HPV(Lsil/ZAHRA/Asc) [place], [place] [id number] [phone] Comp Metabolic 01/29/2000 [facility] Medicine Albumin 4.3 3.80 (a) (607)- - GM/DL - 5.50 Alkaline Phosphatase 62 U/L 39-130 Bilirubin, Total 0.6 mg/dL 0.2-1.3 BUN 11 mg/dL 10-26 Calcium 9.6 mg/dL RH 7.4-9.2 Creatinine 1.0 mg/dL 0.6-1.4 Glucose 99 mg/dL 70 - 118 Ast Sgot 16 U/L 9-44 Alt (SGPT) 16 U/L 10-40 Total Protein 7.4 g/dL 6.3-8.1 Sodium 140 134-149 Potassium 5.1 mEq/L 3.6-5.5 Chloride 98 mEq/L 94-112 Co2 31 21-32 Globulin 3.1 2.0-4.8 Albumin / Globulin Ratio 1.4 0.6-2.2 BUN/Creatinin Ratio 11.0 8.0-36 Lipid Profile ([facility]) 01/29/2000 [facility] Cholesterol 200 mg/dL 140 -200 (607)- - Triglyceride 74 mg/dL 30-150 HDL-Chol 70.5 mg/dL High 30-70 VLDL 15 mg/dL 0-50 LDL-Calculated 115 0-160 CBC With Diff ([facility]) 01/29/2000 [facility] WBC 4.3 /Hpf 3.6 - 9.6 (607)- - Lymphocytes 35.5 % 20.5 - 51.1 Monocytes 5.3 % 1.7 - 9.3 Granulocytes 59.2 % 42.2 - 75.2 Lymphocytes 1.5 10^3/uL 0.7 - 4.9 Monocytes 0.2 10^3/uL 0.1 - 0.9 Granulocytes 2.5 10^3/uL 1.5 - 7.2 RBC 4.42 /Hpf 3.90 - 5.70 Hemoglobin 14.3 g/dL 12.1 - 17.2 Hematocrit 42.1 % 36.1 - 50.3 Mean Corpuscular Vol 95.4 fl 82.2 - 97.4 Mean Corpuscular Hemaglobin 32.4 pg 27.6 - 33.3 Mean Corpuscular Hemo Concen 34.0 g/dL 33.0 - 34.8 RDW 12.8 % 11.6 - 13.7 Platelets 317 10^3/ul 150-400 Mean Platelet Volume 8.5 fl 7.4 - 10.4 1 SEE RESULT BELOW Name: MEAGAN CHAKRABORTY Lula : [address]: Mary Ann Dennison ASSOCIATE PUBLISHER Acct: [id number] Unit: [id number] AGE: 86 Location: [facility] Re10/03/17 SEX: F Status: REG REF SPEC: [id number] KAYLA: 10/03/17-[address] [facility] [address]: Mary Ann Dennison NP REQ: [id number] RECD: 10/03/17-9591 EXPLICIT FAX#: FAX [phone] STATUS: EWA CARUSO DR: Scarlet Johnson MD _ SOURCE: URINE SPDESC: ORDERED: Urine Culture QUERIES: Urine Source: Random Procedure Result Reported Site Urine Culture Final 10/05/17- 1009 ML Organism 1 [facility] [place] Count >100,000 (Many) CFU/ML 1. [facility] M.I.C. RX --------- ------ Ampicillin R Cefazolin <=4 S Cefepime <=1 S Ceftriaxone <=1 S Ciprofloxacin <=0.25 S Gentamicin <=1 S Levofloxacin <=0.12 S Meropenem <=0.25 S Nitrofurantoin <=16 S Tetracycline <=1 S Pipercillin/Tazobactam <=4 S Trimethoprim/Sulfamethoxazole <=20 S Amoxicillin/Clavulanic Acid <=2 S Aztreonam <=1 S Contact the Microbiology Department for any additional antibiotic reporting. * ML - Main Lab . END OF REPORT DEPARTMENT OF PATHOLOGY, [address] [place] [address] Julius Emmanuel M.D. Director [facility] # [id number] 2 RESULTS VERIFIED BY REPEAT ANALYSIS 3 RESULTS VERIFIED BY REPEAT ANALYSIS 4 RESULTS VERIFIED BY REPEAT ANALYSIS 5 RESULTS VERIFIED BY REPEAT ANALYSIS 6 RESULTS VERIFIED BY REPEAT ANALYSIS 7 RESULTS VERIFIED BY REPEAT ANALYSIS 8 Escherichia coli >100,000 col/ml . URINE CULTURE ORGANISM 1 Escherichia coli ORGANISM 1 >100,000 col/ml Ampicillin <=2 Susceptible Ampicillin/sulbactam <=2 Susceptible Cefazolin <=4 Susceptible Cefoxitin <=4 Susceptible Ciprofloxacin <=0.25 Susceptible Ertapenem <=0.5 Susceptible Gentamicin <=1 Susceptible Imipenem <=0.25 Susceptible Levofloxacin <=0.12 Susceptible Nitrofurantoin 32 Susceptible Piperacillin/tazobactam <=4 Susceptible Trimethoprim/Sulfa <=20 Susceptible 9 RESULTS VERIFIED BY REPEAT ANALYSIS 10 [employer] DEPARTMENT OF PATHOLOGY or Extension [address] [employer] METAL CYTOLOGY REPORT PATIENT: MEAGAN CHAKRABORTY I : 1930 AGE: 80 Y SEX: F ACCT: [id number] PROCEDURE DATE: 05/11/2011 DATE RECEIVED: 05/12/2011 REQUESTING PHYSICIAN: SONI JOHNSON MD LOCATION: [facility] Case No. [id number] PATIENT DATA: [id number] SPECIMEN SUBMITTED: * * (HPVII) THIN PREP W/HPV (LSIL/ASC/ZAHRA) * * ENDOCERVICAL RELEVANT HISTORY: Menarche: Y Prev.normal: 07/16 Comment: POST MENOPAUSAL SPECIMEN ADEQUACY SATISFACTORY FOR EVALUATION. THE PRESENCE OF TRANSFORMATION ZONE COMPONENT CANNOT BE DETERMINED DUE TO ATROPHIC CHANGES. GENERAL CATEGORIZATION NEGATIVE FOR INTRAEPITHELIAL LESIONS OR MALIGNANCY RECOMMENDATIONS Thin Prep Pap tests are examined with an FDA approved location-guidance system. ADDITIONAL COPIES SENT TO: Screened/Rescreened Electronically Signed Sign Out Date/Time: by: by: LORENE MIHIR PALMER, 05/12/2011 13:33 CT(ASCP) The Pap smear is a screening test designed to aid in the detection of premalignant and malignant conditions of the uterine cervix. It is not a diagnostic procedure and should not be used as the sole means of detecting cervical cancer. Both false-positive and false-negative reports do occur. Performed @ [facility], [address] [place] [address] 11 [employer] DEPARTMENT OF PATHOLOGY or Extension [employer] [employer] METAL CYTOLOGY REPORT PATIENT: MEAGAN CHAKRABORTY I : 1930 AGE: 78 Y SEX: F ACCT: [id number] PROCEDURE DATE: 07/22/2009 DATE RECEIVED: 07/23/2009 REQUESTING PHYSICIAN: SONI JOHNSON MD LOCATION: [facility] Case No. [id number] PATIENT DATA: [id number] SPECIMEN SUBMITTED: * * (HPVII) THIN PREP W/HPV (LSIL/ASC/ZAHRA) * * ENDOCERVICAL RELEVANT HISTORY: Menarche: Y Menopause: Y : 1 Para: 1 Prev.normal: 2007 SPECIMEN ADEQUACY SATISFACTORY FOR EVALUATION, ENDOCERVICAL TRANSFORMATION ZONE COMPONENT PRESENT GENERAL CATEGORIZATION NEGATIVE FOR INTRAEPITHELIAL LESIONS OR MALIGNANCY ADDITIONAL COPIES SENT TO: Screened/Rescreened by: Electronically Signed by: SANJIV GARCIA(ASCP) Signed Date/Time 07/24/2009 11:46 Thin Prep Pap tests are examined with an FDA-approved location-guidance system (42381). Performed @ [facility], [address] [place] [address] "" 12 RESULT ADAMS'D 13 [email or web address] DEPARTMENT OF PATHOLOGY or Extension [address] [employer] METAL CYTOLOGY REPORT PATIENT: MEAGAN CHAKRABORTY I : 1930 AGE: 76 Y SEX: F ACCT: [id number] PROCEDURE DATE: 07/07/2007 DATE RECEIVED: 07/10/2007 REQUESTING PHYSICIAN: SONI JOHNSON MD LOCATION: [facility] Case No. [id number] PATIENT DATA: [id number] SPECIMEN SUBMITTED: * * (HPVII) THIN PREP W/HPV (LSIL/ASC/ZAHRA) * * ENDOCERVICAL RELEVANT HISTORY: : 1 Para: 1 Previous smear date: ??/??/1996 Prev.normal: WNL SPECIMEN ADEQUACY SATISFACTORY FOR EVALUATION. THE PRESENCE OF TRANSFORMATION ZONE COMPONENT CANNOT BE DETERMINED DUE TO ATROPHIC CHANGES. GENERAL CATEGORIZATION NEGATIVE FOR INTRAEPITHELIAL LESIONS OR MALIGNANCY ADDITIONAL COPIES SENT TO: Screened/Rescreened by: Electronically Signed by: SANJIV GARCIA(ASCP) Signed Date 07/12/2007 12:51 Thin Prep Pap tests are examined with an FDA-approved location-guidance system (31577). Performed @ [facility], [facility] [address] [place] [id number] Procedures Date Code Description Status 01/18/2017 82492641 Colonoscopy Completed 11/25/2015 05681 Electrocardiogram Complete Completed 01/16/2013 79861 Electrocardiogram Complete Completed 02/03/2011 [id number] Bone Mineral Density Test Completed 01/04/2011 [id number] Mammogram Completed 08/03/2007 [id number] Mammogram Completed Encounters Type Date Location Provider Dx Diagnosis Office Visit 11/22/2016 [facility] Office Soni Delgadillo Z02.9 Encounter for 9:20a Cole Johnson administrative examinations, unspecified Office Visit 12/17/2014 [facility] Office Soni Delgadillo 782.1 Rash & Other Nonspec 1:40p Cole Johnson Skin Eruption Office Visit 11/14/2014 [facility] Zo Escalanet 782.1 Rash & Other Nonspec 10: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 [employer] 989.5 Toxic Effect Of Venom Office Visit 11/03/2011 7:20p [facility] Office Soni Delgadillo 782.1 Rash & Other Cole Johnson Nonspec Skin Eruption Office Visit 07/22/2009 10:20a [facility] Soni Delgadillo 780.79 Malaise And Cole Johnson Fatigue Other 719.49 Pain Joint Multiple Sites 272.4 Hyperlipidemia Other Unspec Office Visit 07/07/2007 10:20a [facility] Soni Delgadillo 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 Plan of Treatment 06/30/2018 - Lavern Bonilla, NPR00.1 Bradycardia, unspecifiedComments:Please follow-up at [facility] emergency department now.I16.0 Hypertensive urgencyComments:Appears resolved for now, but still may need some attention.AllComments:1. Patient has been queried about patient's goals/ preferences and functional/lifestyle goals at relevant visits. If relevant, describe: Has been discussed, noted above2. Treatment goals as explainedto the patient: see above3. Are there barriers to meeting treatment goals? Yes If Yes, please describe: Barriers include possible insurance limits, disease process, and difficulty with lifestyle changes4. Self-Management goals as described to the patient: Yes, see above As always, we strongly encourage a healthy diet and making physical activity a part of your every day life. If you have questions about how or where to start, please contact the office.
[2018-06-30] MEDS ORDERED: Lisinopril TAB* 10 MG PO ONE (14:29)
--- NOTE | 2018-06-30 14:35 | ED ---
Hypertension - HPI Summary HPI Summary: A 87 y/o female presents to the ED c/o HTN. In the ED room, the patient has a pulse of 70 BPM, respiratory rate of 13, and blood pressure of 223/86. As per triage, "pt sent by PCP for HTN and borderline EKG. denies CP, SOB, dizziness. HR regular". According to the patient, she went to her MD to check her foot, but her MD noted that the patient had HBP and had a bad EKG reading. She stated that she was sent here for workup. Patient noted that she feels fine except she feels a bit nervous and jittery. She denies any SOB, CP, dizziness, and blurred vision, but does feel fatigued (for past year) especially recently. Patient has no blood pressure medications. PMHx of hemorrhoids. - History of Current Complaint Chief Complaint: EDHypertension Stated Complaint: IRREGULAR HEARTRATE Time Seen by Provider: 06/30/18 13:53 Hx Obtained From: Patient Onset/Duration: Started Hours Ago, Started Days Ago, Still Present Aggravating Factor(s): Nothing Alleviating Factor(s): Nothing Associated Signs & Symptoms: Negative - Allergies/Home Medications Allergies/Adverse Reactions: Allergies Allergy/AdvReac Type Severity Reaction Status Date / Time aureomycin Allergy Unknown Uncoded 06/30/18 13:11 Reaction Details PMH/Surg Hx/FS Hx/Imm Hx Endocrine/Hematology History: Denies: Hx Diabetes Respiratory History: Denies: Hx Asthma - Surgical History Surgery Procedure, Year, and Place: PER PATIENT, NO PRIOR SURGERIES. Infectious Disease History: No Infectious Disease History: Denies: Traveled Outside the [place] in Last 30 Days - Family History Known Family History: Negative: Diabetes - Social History Alcohol Use: Occasionally Substance Use Type: Reports: None Smoking Status (MU): Never Smoked Tobacco Review of Systems Positive: Fatigue. Negative: Fever, Chills Negative: Blurred Vision, Erythema Negative: Sore Throat Negative: Chest Pain Positive: Other - POSITIVE: HBP. Negative: Shortness Of Breath Negative: Abdominal Pain, Vomiting, Nausea Negative: dysuria, hematuria Negative: Myalgia, Edema Negative: Rash Neurological: Other - NEGATIVE: DIZZINESS Psychological: Other - POSITIVE: NERVOUS All Other Systems Reviewed And Are Negative: Yes Physical Exam - Summary Physical Exam Summary: Constitutional: Well-developed, Well-nourished, Alert. (-) Distressed Skin: Warm, Dry HENT: Normocephalic; Atraumatic Eyes: Conjunctiva normal Neck: Musculoskeletal ROM normal neck. (-) JVD, (-) Stridor, (-) Tracheal deviation Cardio: Rhythm regular, rate normal, Heart sounds normal; Intact distal pulses; The pedal pulses are 2+ and symmetric. Radial pulses are 2+ and symmetric. (-) Murmur Pulmonary/Chest wall: Effort normal. (-) Respiratory distress, (-) Wheezes, (-) Rales Abd: Soft, (-) epigastric tenderness, (-) Distension, (-) Guarding, (-) Rebound Musculoskeletal: (-) Edema Lymph: (-) Cervical adenopathy Neuro: Alert, Oriented x3 Psych: Mood and affect Normal Triage Information Reviewed: Yes Vital Signs On Initial Exam: Initial Vitals Temp Pulse Resp BP Pulse Ox 98.3 F 86 20 232/85 98 06/30/18 13:06 06/30/18 13:06 06/30/18 13:06 06/30/18 13:06 06/30/18 13:06 Vital Signs Reviewed: Yes Diagnostics - Vital Signs Vital Signs Temp Pulse Resp BP Pulse Ox 06/30/18 14:13 10 223/86 06/30/18 14:00 15 06/30/18 13:58 11 196/73 06/30/18 13:43 216/94 06/30/18 13:42 23 06/30/18 13:06 98.3 F 86 20 232/85 98 - Laboratory Result Diagrams: 06/30/18 14:26 06/30/18 14:26 Lab Statement: Any lab studies that have been ordered have been reviewed, and results considered in the medical decision making process. - Radiology CXR Radiology Interpretation Completed By: Radiologist Summary of Radiographic Findings: CARDIOMEGALY. HYPERINFLATION. ED PHYSICIAN REVIEWED THIS RADIOLOGY REPORT. - EKG 1405 Cardiac Rate: NL - 64 BPM EKG Rhythm: Sinus Rhythm - 64 BPM Summary of EKG Findings: NEGATIVE STEMI. Re-Evaluation - Re-Evaluation First Eval Re-Evaluation Time: 14:40 Change: Unchanged Comment: OUTSIDE EKG REVEALED T-WAVE FLATTENED IN V2 AND V3. OTHERWISE UNREMARKABLE. Hypertension Course/Dx - Course Course Of Treatment: A 87 y/o female presents to the ED c/o HTN. In the ED room , the patient has a pulse of 70 BPM, respiratory rate of 13, and blood pressure of 223/86. According to the patient, she went to her MD to check her foot, but her MD noted that the patient had HBP and had a bad EKG reading. She stated that she was sent here for workup. Patient noted that she feels fine except she feels a bit nervous and jittery. She denies any SOB, CP, dizziness, and blurred vision, but does feel fatigued (for past year) especially recently. Physical examination was unremarkable. A CXR revealed cardiomegaly and hyperinflation. An EKG revealed NSR of 64 BPM, negative STEMI. Hematology and Chemistry screens were done. No significant laboratory abnormalities were found except hyperglycemia of 103 mg/dL. Troponin I of 0.00. Patient care was discussed with Lavern Horan PRODUCE BUYER from her PCP office, Dr. Soni Johnson, who stated that she agrees with the plan to place the patient on 10 mg of Lisinopril daily. Patient is to follow up on Tuesday and keep a BP log. Patient will be discharged with a diagnosis of HTN. She will be sent home with a prescription of Lisinopril and is to take medication as prescribed. Patient is to follow up with primary care physician in 3 days. Patient is to return to the ED for any new or worsening symptoms. Patient is agreeable with this plan. - Diagnoses Provider Diagnoses: HTN (hypertension) - Physician Notifications Discussed Care Of Patient With: Lavern Horan Time Discussed With Above Provider: 16:25 Instructed by Provider To: Other - LAVERN HORAN NP FROM DR. SONI LAZO OFFICE. AGREES WITH PLAN TO PLACE PATIENT ON 10 MG OF LISINOPRIL DAILY. PATIENT IS TO FOLLOW UP ON TUESDAY AND KEEP A BP LOG. Discharge - Sign-Out/Discharge Documenting (check all that apply): Patient Departure - DISCHARGE - Discharge Plan Condition: Stable Disposition: HOME Prescriptions: Lisinopril TAB* [Prinivil TAB 10 MG*] 10 mg PO DAILY #7 tab Patient Education Materials: Hypertension (ED), Hypertensive Crisis (ED) Referrals: Soni Johnson MD [Primary Care Provider] - 3 Days Additional Instructions: FOLLOW UP WITH YOUR PRIMARY CARE PROVIDER ON TUESDAY. TAKE YOUR LISINOPRIL PRESCRIBED. RETURN TO THE ED FOR ANY NEW OR WORSENING SYMPTOMS. - Attestation Statements Document Initiated by Scribe: Yes Documenting Scribe: Steve Gregory Provider For Whom Scribe is Documenting (Include Credential): David Braga MD Scribe Attestation: Steve Cotton, scribed for David Braga MD on 06/30/18 at 1637. Status of Scribe Document: Ready
[2018-06-30 14:38] LABS: ABS Basophils 0.1 10^3/ul (0-0.2); ABS Eosinophils 0.1 10^3/ul (0-0.6); ABS Monocytes 0.9 10^3/ul (0-0.8); ABS Neutrophils 3.2 10^3/ul (1.5-7.7); ABS Nucleated RBC 0 10^3/ul; Hematocrit 35 % (35-47); Hemoglobin 11.6 g/dl (12.0-16.0); Lymphocyte % 19.7 %; Mean Corpuscular HGB Conc 34 g/dl (31-36); Mean Corpuscular Hemoglobin 34 pg (27-31); Mean Corpuscular Volume 101 fL (80-97); Mean Platelet Volume 7.2 fL (7.4-10.4); Nucleated Red Blood Cells % 0; Platelet Count 374 10^3/ul (150-450); Red Blood Count 3.43 10^6/ul (4.00-5.40); Red Cell Distribution Width 19 % (10.5-15); White Blood Count 5.3 10^3/ul (3.5-10.8)
[2018-06-30 15:29] LABS: Albumin 3.8 g/dL (3.2-5.2); Albumin/Globulin Ratio 1.1 (1-3); BUN/Creatinine Ratio 22.3 (8-20); EGFR African American 67.8 (>60); EGFR Non-African American 56.1 (>60); Globulin 3.4 g/dL (2-4); Potassium 3.8 mmol/L (3.5-5.0); Total Bilirubin 0.7 mg/dL (0.2-1.0); Total Protein 7.2 g/dL (6.4-8.9)
[2018-06-30 16:50] VITALS: BP 175/88
== END 2018-06-30 16:50 | disposition home or self-care (01) ==
LOC: ED 13:04
DX: I10 Essential (primary) hypertension (principal); R53.83 Other fatigue
CPT/HCPCS: 36415; 71045; 80053; 83605; 84484; 85025; 93005; 99283; A9270-GY

== ENCOUNTER 2018-11-20 08:11 | Day surgery (SDC) | payer MEDICARE, OTHER ==
[~2018-11-20 08:11] MED LIST: Buffered Lidocaine 1% SYRIN* 1 ML/SYRINGE INTRADERM ONE; Dexamethasone IV* 4 MG/ML 1 ML (4 MG) IV SLOW PU ONE; Famotidine IV* 10 MG/ML 2 ML (20 mg) IV ONE; Lactated Ringers 1000 ML Bag* 1,000 ML IV SCH
[2018-11-20] MEDS ORDERED: fentaNYL* 50 MCG/ML 2 ML VIAL (100 MCG VIAL) IV PRN (08:13)
[2018-11-20] MEDS ORDERED: Naloxone* 0.4 MG/ML 1 ML VIAL IV PRN (08:13)
[2018-11-20] MEDS ORDERED: oxyCODONE/Acetamin 5/325 MG* TAB PO PRN (08:13)
[2018-11-20] MEDS ORDERED: DiMENhydriNATE IV* 50 MG/ML VIAL IV PUSH PRN (08:13)
[2018-11-20] MEDS ORDERED: HYDROcodone/ACETAMIN 5-325 MG* 1 TAB PO PRN (08:13)
[2018-11-20] MEDS ORDERED: Dexamethasone IV* 4 MG/ML 1 ML (4 MG) ONE (08:43)
[2018-11-20] MEDS ORDERED: ceFAZolin 2 GM in NS PREMIX(*) 2 GM/100 ML BAG IVPB ONE (08:43)
[2018-11-20] MEDS ORDERED: Famotidine IV* 10 MG/ML 2 ML (20 mg) ONE (08:43)
[2018-11-20] MEDS ORDERED: Buffered Lidocaine 1% SYRIN* 1 ML/SYRINGE INTRADERM ONE (08:43)
[2018-11-20] MEDS ORDERED: Midazolam* 1 MG/ML 2 ML VIAL (2 MG) ONE ×2 (09:40→10:38)
[2018-11-20] MEDS ORDERED: fentaNYL* 50 MCG/ML 2 ML VIAL (100 MCG VIAL) ONE (09:40)
[2018-11-20] MEDS ORDERED: Bupivacaine 0.5%* 50 ML VIAL ONE (10:03)
[2018-11-20] MEDS ORDERED: Chloroprocaine 2%* 20 ML VIAL ONE (10:27)
[2018-11-20] MEDS ORDERED: hydrALAZINE IV* 20 MG/ML VIAL ONE (10:50)
[2018-11-20 13:39] VITALS: BP 153/67
--- NOTE | 2018-11-20 13:53 | OP ---
DATE OF OPERATION: 11/20/18 - [facility] DATE OF : [birth year] SURGEON: Haim Horan MD. CLERICAL ADMINISTRATIVE ASSISTANT: Colleen Esparza PA-C. PRE-OP DIAGNOSIS: Painful hardware, right fibula and medial deltoid. POST-OP DIAGNOSIS: Painful hardware, right fibula and medial deltoid. OPERATIVE PROCEDURE: Removal of plate in right fibula and pin in right medial malleolus. DESCRIPTION OF PROCEDURE: The patient was taken to the operating room, where a longitudinal incision was made directly through the lateral fibular scar. The plate was removed after removing the 4 small fragment screws. We rongeured off any redundant tissue laterally, irrigated this thoroughly, and then closed with interrupted Monocryl sutures and nylon for the skin. The 2 [id number] lag screws were buried within the bone and were not removed. A 1 cm incision was made at the medial malleolus, removing the K-wire from the medial side and this was closed with the nylon suture. A compression dressing was applied. [id number]/[facility] #: [id number] [facility]
== END 2018-11-20 14:45 | disposition home or self-care (01) ==
LOC: OR 08:11
PROVIDERS: ATTEND Orthopaedic Surgery
DX: S82.841S Displaced bimalleolar fracture of right lower leg, sequela (principal); Z46.89 Encounter for fitting and adjustment of other specified devices; Z88.8 Allergy status to other drugs, medicaments and biological substances; Z79.82 Long term (current) use of aspirin; Z87.891 Personal history of nicotine dependence; X58.XXXS Exposure to other specified factors, sequela
CPT/HCPCS: 88300; J0360; J0690; J1100; J2250; J2400; J3010; J3490

== ENCOUNTER 2018-11-26 13:55 | Emergency (ER) | payer MEDICARE, OTHER ==
--- OUTSIDE RECORDS SUMMARY | 2018-11-26 14:10 | XMS REPORT | Continuity of Care Document ---
:1930 External Reference #:[id number] Author Name Mary Ann Martinez Care Team Providers Name Role Phone Yordan Johnson MD Primary Care Physician Unavailable Payers Date Identification Numbers Payment Provider Subscriber Policy Number: [id number] Medicare Meagan Chakraborty PayID: [id number] [address] [place] [address] Policy Number: [id number] [employer] Meagan Chakraborty PayID: [id number] [address] [place] [address] Policy Number: [id number] [facility] Meagan Chakraborty PayID: [id number] [address] [place] [address] Expires: 2018 Policy Number: [id number] [employer] Meagan Chakraborty Group Number: [id number] [address] PayID: [id number] [place] [address] PayID: [id number] [facility] Meagan Chakraborty [address] [place] [address] Family History Date Family Member(s) Observation Comments General Heart Disease General Cancer Father due to CAD () : (age 79 Father due to CHF Years) Mother Stroke : (age 96 Mother due to Stroke Years) Siblings 2 brother chf pnuemonia 92 brother cva Social History Type Date Description Comments Sex Unknown Marital Status Lives With Spouse ETOH Use Occasionally consumes alcohol Tobacco Use Start: Unknown End: Patient is a former smoker Unknown Smoking Status Reviewed: 10/31/18 Patient is a former smoker Exercise Type/Frequency Exercises regularly Allergies, Adverse Reactions, Alerts Active Allergies Reaction Severity Comments Date Tetracycline 08/12/2015 Bactrim rash 10/04/2017 Medications Active Medications SIG Qnty Indications Ordering Date Provider Hydrocortisone apply bid 28.350gm L73.9 Mary Ann Jesi, 08/24/2018 1% Cream sparingly to rash N.P. Lisinopril 1 tab po qd Unknown 10mg Tablets Aspirin 1-2 tabs po q 4 Unknown 325mg Tablets hours prn DR Wongort-HC suppository rectal Unknown 25mg every night prn Suppository Miralax 1 capful every day Unknown 3350NF Packet History Medications Keflex 1 by mouth two 14caps T84.84xD Haim 09/26/2018 - 500mg times per day Cole Horan 10/30/2018 Capsules No Active Unknown 06/29/2018 - Medications 08/24/2018 Miralax 1 capful qd 24units K64.9 Mary Ann 10/04/2017 - 3350NF Jesi, N.P. 06/28/2018 Packet Rectiv apply sparingly 30gm K64.9 Mary Ann 10/04/2017 - 0.4% bid x 2 weeks Jesi, N.P. 05/23/2018 Ointment Anucort-HC 1 suppository 12units K64.9 Mary Ann 10/04/2017 - 25mg every night as Jesi, N.P. 06/28/2018 Suppository needed Levaquin 1 tab po qd x 3 3tabs N39.0 Mary Ann 10/04/2017 - 250mg days Jesi, N.P. 05/23/2018 Tablets Biofreeze 1 application 237ml M54.31 [facility] 04/22/2017 - 4% Gel topically four VICTORIA Alcaraz 05/23/2018 times a day as needed for muscle pain (may autosub 5% if 4% not available) Bactrim DS twice daily for 3 6tabs N39.0 Bridgett 01/30/2016 - days Lissa, VICTORIA 10/04/2017 800-160mg Tablets Bactrim DS twice daily for 3 6tabs N39.0 Mary Ann 01/20/2016 - days Jesi, N.P. 01/22/2016 800-160mg Tablets Aspirin prn for pain Unknown - 325mg 06/28/2018 Tablets Probiotic 1 cap po qd Unknown - Capsules 06/28/2018 Sertraline HCL 1 tab po qd Unknown - 25mg 08/27/2018 Tablets Vital Signs Date Vital Result Comment 10/31/2018 10:27am Height 62 inches 5'2" Weight 127.00 lb Heart Rate 69 /min Respiratory Rate 17 /min Pain Level 2 BMI (Body Mass Index) 23.2 kg/m2 10/05/2018 10:26am Height 62 inches 5'2" Weight 127.00 lb Heart Rate 60 /min BP Systolic 136 mmHg BP Diastolic 60 mmHg Body Temperature 98.6 F Pain Level 4 BMI (Body Mass Index) 23.2 kg/m2 09/26/2018 11:33am Height 62 inches 5'2" Weight 128.56 lb Heart Rate 64 /min BP Systolic 140 mmHg BP Diastolic 80 mmHg Body Temperature 99.5 F Pain Level 0 BMI (Body Mass Index) 23.5 kg/m2 09/21/2018 10:08am Weight 129.38 lb Heart Rate 48 /min BP Systolic Sitting 146 mmHg BP Diastolic Sitting 64 mmHg Respiratory Rate 21 /min Body Temperature 98.7 F O2 % BldC Oximetry 99 % 09/18/2018 10:07am Weight 130.00 lb Heart Rate 46 /min BP Systolic Sitting 170 mmHg 10 min 150/60 BP Diastolic Sitting 90 mmHg 10 min 150/60 Respiratory Rate 16 /min Body Temperature 98.6 F O2 % BldC Oximetry 98 % 08/28/2018 2:52pm Weight 129.25 lb Heart Rate 72 /min BP Systolic 170 mmHg sitting Ure reg cuff BP Diastolic 80 mmHg sitting Ure reg cuff BP Systolic Sitting 180 mmHg sitting ule reg cuff BP Diastolic Sitting 80 mmHg sitting ule reg cuff BP Systolic Standing 180 mmHg ule reg cuff BP Diastolic Standing 78 mmHg ule reg cuff Ejection Fraction 60-65% 07/14/18 echo 08/24/2018 10:00am Weight 126.50 lb Heart Rate 62 /min BP Systolic Sitting 158 mmHg BP Diastolic Sitting 84 mmHg Respiratory Rate 21 /min Body Temperature 98.3 F O2 % BldC Oximetry 99 % 06/29/2018 10:57am Height 62 inches 5'2" Weight [...] Result H/L Range Note Laboratory test 05/23/2018 [facility] Culture Throat SEE RESULT 1, [address] [place], [place] [id number] [phone] Urinalysis 10/03/2017 [facility] Urine Color Yellow Profile [address] [place], [place] [address] [phone] Urine Appearance Cloudy Urine Specific [place] 1.006 Low 1.010-1.030 Urine pH 6.0 N [...] Present Abnormal Absent Urine Culture And 10/03/2017 [facility] Urine Culture SEE RESULT [address] [place], [place] [id number] [phone] Urinalysis Profile 01/28/2016 [facility] Urine Color Yellow N [address] [place], [place] [address] [phone] Urine Appearance Clear N Urine Specific [place] 1.005 Low 1.010-1.030 Urine pH 6.0 N 5-9 Urine Urobilinogen Negative N Negative Urine Ketones Negative N Negative Urine Protein Negative N Negative Urine Leukocytes Negative N Negative Urine Blood Negative N Negative Urine Nitrite Negative N Negative Urine Bilirubin Negative N Negative Urine Glucose Negative N Negative Urine Culture And 01/28/2016 [facility] Urine Culture SEE RESULT [address] [place] [address] [phone] Urinalysis Profile 01/20/2016 [facility] System Urine Color Yellow N [address] [place], [place] [address] [phone] Urine Appearance Cloudy N Urine Specific [place] 1.009 Low 1.010-1.030 Urine pH 6.0 N [...] Present Abnormal Absent Urine Culture And 01/20/2016 [facility] Urine Culture SEE RESULT [address] [place], [place] [address] [phone] 1 [id number] 2 SEE RESULT BELOW Name: MEAGAN CHAKRABORTY Lula : [address]: Mary Ann Dennison NP Acct: [id number] Unit: [id number] AGE: 87 Location: [facility] Re05/23/18 SEX: F Status: REG REF SPEC: [id number] KAYLA: 05/23/181145 SUBM DR: Mary Ann Dennison NP REQ: [id number] RECD: 05/23/18649 STATUS: COMP _ SOURCE: THROAT SPDESC: ORDERED: Throat Culture COMMENTS: [id number] Procedure Result Reported Site Throat Culture Final 05/25/18- 0901 ML Organism 1 NORMAL FELICITY Quantity 3+ Throat cultures are clinically indicated to detect the presence of group A strep, arcanobacterium and yeast. In certain cases, predominating organisms will be reported. * ML - Main Lab . END OF REPORT DEPARTMENT OF PATHOLOGY, [address] [place] [address] Julius Emmanuel M.D. Director [facility] # [id number] 3 SEE RESULT BELOW Name: MEAGAN CHAKRABORTY I : [address]: Mary Ann Dennison NP Acct: [id number] Unit: [id number] AGE: 86 Location: [facility] Re10/03/17 SEX: F Status: REG REF SPEC: [id number] KAYLA: 10/03/17-1445 [facility] DR: Mary Ann Dennison NP REQ: [id number] RECD: 10/03/176526 EXPLICIT FAX#: FAX RESULTS [id number] STATUS: RES OTHR DR: Scarlet Johnson MD _ SOURCE: URINE SPDESC: ORDERED: Urine Culture QUERIES: Urine Source: Random Procedure Result Reported Site Urine Culture Preliminary 10/04/17- 1008 ML Organism 1 KLEBSIELLA OXYTOCA [place] Count >100,000 (Many) CFU/ML * ML - Main Lab . END OF REPORT DEPARTMENT OF PATHOLOGY, [address] [place] [address] Julius Emmanuel M.D. Director [facility] # [id number] 5 SEE RESULT BELOW Name: MEAGAN CHAKRABORTY I : [address]: Mary Ann Dennison NP Acct: [id number] Unit: [id number] AGE: 85 Location: [facility] Re01/28/16 SEX: F Status: REG REF SPEC: [id number] KAYLA: 01/28/16-[address]: Mary Ann Dennison NP REQ: [id number] RECD: 01/28/16 STATUS: EWA CARUSO DR: Scarlet _ SOURCE: URINE SPDESC: ORDERED: Urine Culture COMMENTS: [id number] Procedure Result Reported Site Urine Culture Final 08/25/16- 1704 ML No Growth (<1,000 CFU/mL) * ML - MAIN LAB ([facility]) . END OF REPORT * ML=Testing performed at Main Lab DEPARTMENT OF PATHOLOGY, [address] [place] [address] Julius Emmanuel M.D. Director [facility] # [id number] 6 [facility] [id number] 7 SEE RESULT BELOW Name: PALMERMEAGAN I : [address]: Mary Ann Dennison NP Acct: [id number] Unit: [id number] AGE: 85 Location: [facility] Re01/20/16 SEX: F Status: REG REF SPEC: [id number] KAYLA: 01/20/16-[address]: Mary Ann Dennison NP REQ: [id number] RECD: 01/20/161220 STATUS: EWA CARUSO DR: Scarlet _ SOURCE: URINE SPDESC: ORDERED: Urine Culture COMMENTS: [facility] [address] Procedure Result Reported Site Urine Culture Final 01/21/16- 1417 ML Organism 1 STREP GROUP B [place] Count >100,000 (Many) CFU/ML Susceptibility testing of penicillins and other B-lactams approved by FDA for treatment of Streptococcus pyogenes (Group A Strep) and Streptococcus agalactiae (Group B Strep) is not necessary for clinical purposes and need not be done routinely, since as with vancomycin, resistant strains have not been recognized. (CLSI X461-D91;p.66) Positive isolates will be saved for one week. Please call the Microbiology Laboratory if further susceptibility testing is needed. * ML - MAIN LAB ([facility]) . END OF REPORT * ML=Testing performed at Main Lab DEPARTMENT OF PATHOLOGY, [address] [place] [address] Julius Emmanuel M.D. Director [facility] # [id number] Procedures Date Code Description Status 09/13/2018 55146 ECHO Stress Test Incl Perf Contiuous ekg Monitoring W/Phys Completed Superv 08/28/2018 29536 EKG Tracing & Interpretation Completed 07/17/2018 61230 Holter Monitor Review (24 hr)dr villegas & cielo only Completed 07/14/2018 67943 ECHO Transthoracic, Real-Time 2D With Doppler And Color Completed Flow 07/14/2018 23523 ECHO Transthoracic, Real-Time 2D With Doppler And Color Completed Flow 07/14/2018 76171 ECG Monitor/Recording W/Visual Superimposition Scanning Completed Encounters Type Date Location Provider Dx Diagnosis Office Visit 09/26/2018 [facility] Haim Horan, T84.84xD Pain due to 11:15a [facility] internal orthopedic prosth dev/grft, subs Office Visit 09/21/2018 Scarlet Dennison, S91.011D Laceration 10:07a Home N.P. without foreign body, right ankle, subs encntr Office Visit 09/18/2018 Scarlet Dennison T84.84xD Pain due to 9:16a Home N.P. internal orthopedic prosth dev/grft, subs S91.011A Laceration without foreign body, right ankle, init encntr W06.xxxA Fall from bed, initial encounter Office Visit 08/28/2018 3:00p [facility] Emanuel Willis R00.1 BradycardiaKarl M.D. unspecified R03.0 Elevated blood-pressure reading, w/o diagnosis of htn I35.1 Nonrheumatic aortic (valve) insufficiency G47.9 Sleep disorder, unspecified T73.3xxA Exhaustion due to excessive exertion, initial encounter Office Visit 08/24/2018 Scarlet Dennison, L73.9 Follicular 9:28a Home N.P. disorder, unspecified Office Visit 06/29/2018 Orthopedic Haim Horan T84.84xD Pain due to 10:00a [facility] orthopedic prosth dev/grft, subs Office Visit 05/25/2018 Scarlet Dennison, J02.9 Acute 10:09a Home N.P. pharyngitis, unspecified Office Visit 05/23/2018 Scarlet Dennison J02.9 Acute 12:09p Home N.P. pharyngitis, unspecified [facility], N39.0 Urinary tract 10:36a Home N.P. infection, site not specified K64.9 Unspecified hemorrhoids K64.4 Residual hemorrhoidal skin tags Office Visit 08/03/2017 7:48a [facility] Bridgett Alcaraz, N39.0 Urinary tract Home [employer] infection, site not specified R03.0 Elevated blood-pressure reading, w/o diagnosis of htn Office Visit 04/22/2017 12:22p [facility] Bridgett Alcaraz, M54.31 Sciatica, right Home [employer] side R03.0 Elevated blood-pressure reading, w/o diagnosis of htn Office Visit 02/15/2017 Scarlet Liao S66.811A Strain of 10:38a [facility], [employer] musc/fasc/tend at wrs/hnd lv, right hand, init Office Visit 01/28/2016 Scarlet Mary Ann Dennison N39.0 Urinary tract 11:52a [facility] N.P. infection, site not specified Office Visit 01/20/2016 Scarlet Mary Ann Dennison, N39.0 Urinary tract 10:29a Fpc N.P. infection, site not specified Office Visit 08/15/2015 Scarlet Dennison, M25.531 Pain in right wrist 1:27p [facility] N.P. I10 Essential (primary) hypertension Office Visit 08/12/2015 10:30a [facility] Mary Ann Dennison, M25.531 Pain in right Home N.P. wrist R03.0 Elevated blood-pressure reading, w/o diagnosis of htn Plan of Treatment Future Appointment(s):11/20/2018 9:00 am - Haim Horan M.D.12/05/2018 10: 45 am - [facility] - Haim Horan M.D.T84.84xD Pain due to internal orthopedic prosthetic devices , implantsFollow up:10-14 days postop
--- NOTE | 2018-11-26 14:42 | UC ---
Skin Complaint HPI - HPI Summary HPI Summary: PT has had several small bug bites all over her body. denies mosquito bites but they are itchy. sleeps in different bed. denies recent travel. Of note she did have an orthopedic surgical procedure in her R ankle a week ago. Since she noticed the bites a few days ago she noticed R leg swelling. Does not feel pain and swelling does resolve on its own. But then it returns. She has upcoming f/u w/ ortho in a week. She does report some antibx allergies but denies that any were used during procedure. - History of Current Complaint Chief Complaint: UCSkin Time Seen by Provider: 11/26/18 14:24 Stated Complaint: INSECT BITES Hx Obtained From: Patient Pain Intensity: 0 Location: Generalized Character: Pruritus - Allergy/Home Medications Allergies/Adverse Reactions: Allergies Allergy/AdvReac Type Severity Reaction Status Date / Time wheat Allergy Severe GI Upset Verified 11/26/18 16:35 Yeast Allergy Severe GI Upset Verified 11/26/18 16:35 sulfamethoxazole Allergy Intermediate Rash Verified 11/26/18 16:35 [From Bactrim] trimethoprim [From Bactrim] Allergy Intermediate Rash Verified 11/26/18 16:35 Tetracyclines Allergy Unknown Unknown Verified 11/26/18 16:35 Reaction Details aureomycin Allergy Unknown Unknown Uncoded 11/26/18 14:17 Reaction Details Home Medications: Home Medications Aspirin TAB* [Aspirin 325 MG TAB*] 250 mg PO DAILY 11/26/18 [History Confirmed 11/26/18] PMH/Surg Hx/FS Hx/Imm Hx - Surgical History Surgical History: Yes Surgery Procedure, Year, and Place: bilateral cataract surgery w/IOL 04/2011,2010. right foot surgery repair fx. tonsillectomy and adenoidectomy. R ankle hardward removed 11/20/18 - Family History Known Family History: Negative: Diabetes - Social History Alcohol Use: Occasionally Substance Use Type: None Smoking Status (MU): Former Smoker When Did the Patient Quit Smoking/Using Tobacco: stopped when hit 28 years old, only smoked in her 20"s Review of Systems All Other Systems Reviewed And Are Negative: Yes Constitutional: Positive: Negative Skin: Positive: Rash Respiratory: Positive: Negative. Negative: Shortness Of Breath Cardiovascular: Positive: Negative Musculoskeletal: Positive: Edema - R ankle/calf. Negative: Arthralgia, Myalgia Physical Exam Triage Information Reviewed: Yes Appearance: Well-Appearing Vital Signs: Initial Vital Signs Temp 98.7 F 11/26/18 14:17 Pulse 62 11/26/18 14:17 Resp 18 11/26/18 14:17 BP 0/0 11/26/18 14:17 Pulse Ox 98 11/26/18 14:17 Vital Signs Reviewed: Yes Respiratory Exam: Normal Cardiovascular Exam: Normal Musculoskeletal: Positive: Edema @ - mild 1+ R LE. nontender and no cords felt. NO erythema Skin: Positive: Rashes - few papular erytheamtous pruritic lesions on neck, arms , legs, none on torso. Course/Dx - Course Course Of Treatment: BITES: pruritic lesions on body likely bug bites given their presentation and hx. partner does not have them but they sleep in different beds. discussed use of diomatecous earth and otc meds for itching. Not thought to be drug related. R LE edema: although low liklihood it is DVT I strongly recommended going to ED for urgent eval as she has risk factors : recent orthopedic surg and unilateral swelling. Reassuring that it is not red and that it resolves on its own but should be ruled out. No resp. involvement. Offered ambulance, they declined. - Differential Diagnoses - Skin Complaint Differential Diagnoses: Cellulitis, Contact Dermatitis, Drug Rash - Diagnoses Provider Diagnosis: Leg edema, right, Bed bug bite Discharge - Sign-Out/Discharge Documenting (check all that apply): Patient Departure All imaging exams completed and their final reports reviewed: No Studies - Discharge Plan Condition: Good Disposition: HOME-RECOMMEND TO ED Patient Education Materials: Leg Edema (ED) Referrals: Yordan Johnson MD [Primary Care Provider] - Additional Instructions: It is thought that since you just had leg surgery and you have Right leg swelling that has not really resolved you may or may not have a blood clot. To get this evaluated you would need to go to the Emergency right away. We could call you an ambulance but you have chosen to drive. For the bed bugs I recommend using: diatomaceous earth - Billing Disposition and Condition Condition: GOOD Disposition: Home-Recommend to ED
[2018-11-26 15:22] VITALS: BP 130/64
== END 2018-11-26 15:20 | disposition home health service (06) ==
LOC: UCEAST 13:55
DX: S80.861A Insect bite (nonvenomous), right lower leg, initial encounter (principal); W57.XXXA Bitten or stung by nonvenomous insect and other nonvenomous arthropods, initial encounter; Y92.019 Unspecified place in single-family (private) house as the place of occurrence of the external cause; Z79.82 Long term (current) use of aspirin; Z88.2 Allergy status to sulfonamides; Z87.891 Personal history of nicotine dependence
CPT/HCPCS: 99211; G0463

== ENCOUNTER 2018-11-26 16:19 | Emergency (ER) | payer MEDICARE, OTHER ==
--- NOTE | 2018-11-26 21:22 | ED ---
Lower Extremity - HPI Summary HPI Summary: Patient is a 87 y/o F presenting to ED with complaints of RLE edema. She states that she had hardware removed from her right leg a week ago by Dr. Haim Horan. Patient had an "accident" around 20 years ago and states that the hardware that had been placed recently began to "poke out". Infection of the area is denied. After the surgery, patient had some initial swelling which resolved. This morning, patient experienced onset of RLE edema. She denies pain and notes that she has been keeping her leg elevated. PMHx of HTN. On triage, pain is denied, nothing is noted to aggravate/alleviate Sx. Home medications and allergies are reviewed. - History of Current Complaint Chief Complaint: EDExtremityLower Stated Complaint: INSECT BITES AND SWELLING IN LEG PER PT Time Seen by Provider: 11/26/18 20:58 Hx Obtained From: Patient Mechanism Of Injury: Other - no injury Onset of Pain: Hours - this morning RLE onset, Prior to Arrival - this morning RLE onset Onset/Duration: Hours - this morning RLE onset Severity Currently: None Pain Intensity: 0 Pain Scale Used: 0-10 Numeric Timing: Constant, Lasting Hours Location: Is Discrete @ - RLE Associated Signs And Symptoms: Positive: Swelling - RLE Aggravating Factor(s): Nothing Alleviating Factor(s): Nothing - Allergies/Home Medications Allergies/Adverse Reactions: Allergies Allergy/AdvReac Type Severity Reaction Status Date / Time wheat Allergy Severe GI Upset Verified 11/26/18 16:35 Yeast Allergy Severe GI Upset Verified 11/26/18 16:35 sulfamethoxazole Allergy Intermediate Rash Verified 11/26/18 16:35 [From Bactrim] trimethoprim [From Bactrim] Allergy Intermediate Rash Verified 11/26/18 16:35 Tetracyclines Allergy Unknown Unknown Verified 11/26/18 16:35 Reaction Details aureomycin Allergy Unknown Unknown Uncoded 11/26/18 14:17 Reaction Details PMH/Surg Hx/FS Hx/Imm Hx Endocrine/Hematology History: Denies: Hx Diabetes Cardiovascular History: Reports: Hx Hypertension, Other Cardiovascular Problems/ Disorders - atrealventricular block, bradycardia Respiratory History: Denies: Hx Asthma Musculoskeletal History: Reports: Hx Arthritis - mild, Other Musculoskeletal History - right ankle problems with hardware Sensory History: Reports: Hx Contacts or Glasses - for reading, Hx Hearing Aid - both ears Opthamlomology History: Reports: Hx Contacts or Glasses - for reading - Cancer History Hx Chemotherapy: No - Surgical History Surgery Procedure, Year, and Place: bilateral cataract surgery w/IOL 04/2011,2010. right foot surgery repair fx. tonsillectomy and adenoidectomy. R ankle hardward removed 11/20/18 Hx Anesthesia Reactions: Yes - after foot surgery, had not feeling in pubic area and had urine retention Infectious Disease History: No Infectious Disease History: Denies: Traveled Outside the [place] in Last 30 Days - Family History Known Family History: Negative: Diabetes - Social History Alcohol Use: Occasionally Substance Use Type: Reports: None Smoking Status (MU): Former Smoker Review of Systems Negative: Fever - on vitals, temp is 98.9 F Positive: Edema - RLE All Other Systems Reviewed And Are Negative: Yes Physical Exam - Summary Physical Exam Summary: VITAL SIGNS: Reviewed. GENERAL: Patient is a well-developed and nourished female who is lying comfortable in the stretcher. Patient is not in any acute respiratory distress. HEAD AND FACE: No signs of trauma. No ecchymosis, hematomas or skull depressions. No sinus tenderness. EYES: PERRLA, EOMI x 2, No injected conjunctiva, no nystagmus. EARS: Hearing grossly intact. Ear canals and tympanic membranes are within normal limits. MOUTH: Oropharynx within normal limits. NECK: Supple, trachea is midline, no adenopathy, no JVD, no carotid bruit, no c- spine tenderness, neck with full ROM CHEST: Symmetric, no tenderness at palpation LUNGS: Clear to auscultation bilaterally. No wheezing or crackles. CVS: Regular rate and rhythm, S1 and S2 present, no murmurs or gallops appreciated. ABDOMEN: Soft, non-tender. No signs of distention. No rebound no guarding, and no masses palpated. Bowel sounds are normal. EXTREMITIES: FROM in all major joints, no cyanosis or clubbing. Bandage over right ankle, edema of RLE is noted. No tenderness or redness noted. NEURO: Alert and oriented x 3. No acute neurological deficits. Speech is normal and follows commands. SKIN: Dry and warm Triage Information Reviewed: Yes Vital Signs On Initial Exam: Initial Vitals Temp Pulse Resp BP Pulse Ox 98.9 F 71 16 141/77 97 11/26/18 16:30 11/26/18 16:30 11/26/18 16:30 11/26/18 16:30 11/26/18 16:30 Vital Signs Reviewed: Yes Diagnostics - Vital Signs Vital Signs Temp Pulse Resp BP Pulse Ox 11/26/18 18:39 98.7 F 57 16 186/78 97 11/26/18 16:30 98.9 F 71 16 141/77 97 - Laboratory Lab Statement: Any lab studies that have been ordered have been reviewed, and results considered in the medical decision making process. - Ultrasound No standard instances Ultrasound Interpretation Completed By: Radiologist Summary of Ultrasound Findings: RLE VENOUS DOPPLER STUDY IMPRESSION: No acute findings. No evidence of deep vein thrombosis. THIS REPORT WAS REVIEWED BY DR. ROBBINS. Re-Evaluation - Re-Evaluation First Eval Re-Evaluation Time: 21:40 Comment: Results of US discussed with the patient, patient to be discharged. Upon discharge, patient's BP was noted to be elevated. However, patient is asymptomatic, she denies JOY, vomiting, and weakness. Patient was given lisinopril 10 mg and discharged to home with PCP follow-up. Strict return precautions were given. Patient is agreeable with plan. Lower Extremity Course/Dx - Course Course Of Treatment: Patient is a 87 y/o F presenting to ED with complaints of RLE edema. She states that she had hardware removed from her right leg a week ago by Dr. Haim Horan. Patient had an "accident" around 20 years ago and states that the hardware that had been placed recently began to "poke out". Infection of the area is denied. After the surgery, patient had some initial swelling which resolved. This morning, patient experienced onset of RLE edema. She denies pain and notes that she has been keeping her leg elevated. PMHx of HTN. On physical exam, bandage over right ankle is noted, RLE edema is noted, pain, tenderness, and redness are denied. RLE VENOUS DOPPLER STUDY IMPRESSION: No acute findings. No evidence of deep vein thrombosis. Results of US discussed with the patient, patient to be discharged. Upon discharge, patient's BP was noted to be elevated. However, patient is asymptomatic, she denies JOY, vomiting , and weakness. Patient was given lisinopril 10 mg and discharged to home with PCP follow-up. Strict return precautions were given. Patient is agreeable with plan. - Diagnoses Provider Diagnoses: Edema of right lower extremity Discharge - Sign-Out/Discharge Documenting (check all that apply): Patient Departure - DISCHARGE Patient Received Moderate/Deep Sedation with Procedure: No - Discharge Plan Condition: Stable Disposition: HOME Patient Education Materials: Leg Edema (ED) Referrals: Yordan Johnson MD [Primary Care Provider] - Haim Horan MD [Medical Doctor] - 1 Day Additional Instructions: PLEASE RETURN TO THE ED IMMEDIATELY FOR WORSENING OR CONCERNING SYMPTOMS. FOLLOW UP WITH YOUR ORTHOPEDIC DOCTOR TOMORROW. KEEP YOUR LEG ELEVATED. - Attestation Statements Document Initiated by Scribe: Yes Documenting Scribe: MAINOR CANTU Provider For Whom Scribe is Documenting (Include Credential): JOSE ROBBINS MD Scribe Attestation: IMAINOR, scribed for JOSE ROBBINS MD on 11/27/18 at 0130. Status of Scribe Document: Ready
[2018-11-26] MEDS ORDERED: Lisinopril TAB* 10 MG PO ONE (21:40)
[2018-11-26 21:52] VITALS: BP 201/67
== END 2018-11-26 21:52 | disposition home or self-care (01) ==
LOC: ED 16:19
DX: R60.0 Localized edema (principal); I10 Essential (primary) hypertension; Z87.891 Personal history of nicotine dependence
CPT/HCPCS: 99282; A9270-GY